=== PATIENT | male | born 1970 | race Hispanic/Latino ===

== ENCOUNTER 2020-10-09 22:29 | Emergency (ER) | payer OTHER ==
[2020-10-09] MEDS ORDERED: ONDANSETRON HCL 4 MG/2 ML VIAL ONE (23:02)
[2020-10-09 23:03] LABS: BASOPHILS % (AUTO) 0.2 % (0.0-5.0); EOSINOPHILS % (AUTO) 0.7 % (0.0-8.0); HEMATOCRIT 44.6 % (42-54); MEAN CORPUSCULAR HEMOGLOBIN 33.6 pg (27.0-33.0); MEAN CORPUSCULAR HGB CONC 35.9 g/dL (32.0-36.0); MEAN CORPUSCULAR VOLUME 93.7 fL (79-99); MONOCYTES % (AUTO) 9.6 % (3.0-13.0); NEUTROPHILS % (AUTO) 72.1 % (40.0-77.0); PLATELET COUNT (AUTO) 202 K/uL (130-400); RED BLOOD CELL COUNT(AUTO) 4.76 MIL/uL (4.50-6.20); RED CELL DISTRIBUTION WIDTH 11.9 % (11.0-15.5); WHITE BLOOD COUNT (AUTO) 12.1 K/uL (4.8-10.8)
[2020-10-09] MEDS ORDERED: MORPHINE SULFATE 4 MG/1ML SYG ONE (23:03)
[2020-10-09] MEDS ORDERED: CLINDAMYCIN 600 MG/D5% WATER 50 ML IV ONE (23:03)
[2020-10-09] MEDS ORDERED: ZOSYN 3.375GM+NS 50ML 50 ML IV ONE (23:03)
[2020-10-09 23:11] LABS: CREATININE 1.1 mg/dL (0.5-1.5); POTASSIUM 3.9 mmol/L (3.5-5.1)
[2020-10-09 23:17] LABS: BILIRUBIN,TOTAL 0.4 mg/dL (0.2-1.0); CRP QUANTITATIVE 61.8 mg/L (0.00-9.0); TOTAL PROTEIN, SERUM 7.6 g/dL (6.0-8.3)
== END 2020-10-10 00:14 | disposition home or self-care (01) ==
LOC: EDH 22:29
DX: L03.116 Cellulitis of left lower limb (principal)
CPT/HCPCS: 36415; 73630; 80053; 82948; 83605; 85025; 86140; 87040; 87070; 87076; 87077; 87186; 96365; 96368; 96375; 99284; J2270; J2405; J2543; J3490

== ENCOUNTER 2020-10-12 16:32 | Inpatient (IN) | payer SELFPAY ==
[~2020-10-12] VITALS: Ht 167.6 cm; Wt 92.2 kg
[2020-10-12 17:29] LABS: BASOPHILS % (AUTO) 0.4 % (0.0-5.0); HEMATOCRIT 44.3 % (42-54); LYMPHOCYTES % (AUTO) 27.7 % (21.0-51.0); MEAN CORPUSCULAR HEMOGLOBIN 32.8 pg (27.0-33.0); MEAN CORPUSCULAR HGB CONC 35.4 g/dL (32.0-36.0); MEAN CORPUSCULAR VOLUME 92.7 fL (79-99); MONOCYTES % (AUTO) 11.8 % (3.0-13.0); NEUTROPHILS % (AUTO) 57.5 % (40.0-77.0); PLATELET COUNT (AUTO) 260 K/uL (130-400); RED BLOOD CELL COUNT(AUTO) 4.78 MIL/uL (4.50-6.20); RED CELL DISTRIBUTION WIDTH 11.7 % (11.0-15.5); WHITE BLOOD COUNT (AUTO) 6.9 K/uL (4.8-10.8)
[2020-10-12 17:41] LABS: POTASSIUM 4.2 mmol/L (3.5-5.1)
[2020-10-12 17:46] LABS: ALBUMIN 3.4 g/dL (3.5-5.0); BILIRUBIN,TOTAL 0.6 mg/dL (0.2-1.0); TOTAL PROTEIN, SERUM 8.1 g/dL (6.0-8.3)
[2020-10-12] MEDS ORDERED: ZOSYN 3.375GM+NS 50ML 50 ML IV ONE (18:09)
[2020-10-12] MEDS ORDERED: VANCOMYCIN 1GM+NS 250ML 250 ML IV ONE (18:10)
[2020-10-12] MEDS ORDERED: ONDANSETRON HCL 4 MG/2 ML VIAL ONE (18:33)
[2020-10-12] MEDS ORDERED: MORPHINE SULFATE 4 MG/1ML SYG ONE (18:34)
[2020-10-12] MEDS: VANCOMYCIN 750MG + NS 250 ML IV SCH ×2 (21:00)
[2020-10-12] MEDS ORDERED: VANCOMYCIN PROTOCOL PER PHARMACY IV SCH (21:15)
[2020-10-12] MEDS ORDERED: MAG HYDROX/AL HYDROX/SIMETH ES 30 ML SUSP UDCUP PO PRN (21:15)
[2020-10-12] MEDS ORDERED: DiphenhydrAMINE HCL 50 MG/ML VIAL IV PRN (21:15)
[2020-10-12] MEDS ORDERED: ACETAMINOPHEN 325 MG TAB PO PRN ×2 (21:15)
[2020-10-12] MEDS ORDERED: DIPHENHYDRAMINE HCL 25 MG CAPSULE PO PRN (21:15)
[2020-10-12] MEDS ORDERED: LACTULOSE 20 GM/30 ML UDCUP PO PRN (21:15)
[2020-10-12] MEDS ORDERED: ONDANSETRON HCL 4 MG/2 ML VIAL IV PRN (21:15)
[2020-10-12] MEDS ORDERED: GUAIFENESIN-DM 200/20 MG 10 ML PO PRN (21:15)
[2020-10-12] MEDS ORDERED: NITROGLYCERIN 0.4 MG SL TAB SL PRN (21:15)
[2020-10-12 22:45] VITALS: BP 150/86
[2020-10-12 23:58] VITALS: BP 150/86
[2020-10-13] VITALS (23 sets, daily range): BP systolic 100–128; BP diastolic 59–88
[2020-10-13] MEDS: VANCOMYCIN 750MG + NS 250 ML IV SCH ×6 (02:20→21:17)
[2020-10-13] MEDS: ZOSYN 3.375GM+NS 50ML 50 ML IV SCH ×3 (04:22→17:17)
[2020-10-13 05:53] LABS: BASOPHILS % (AUTO) 0.6 % (0.0-5.0); EOSINOPHILS % (AUTO) 3.5 % (0.0-8.0); HEMATOCRIT 41.4 % (42-54); LYMPHOCYTES % (AUTO) 35.3 % (21.0-51.0); MEAN CORPUSCULAR HEMOGLOBIN 32.7 pg (27.0-33.0); MEAN CORPUSCULAR HGB CONC 35.3 g/dL (32.0-36.0); MEAN CORPUSCULAR VOLUME 92.8 fL (79-99); MONOCYTES % (AUTO) 15.3 % (3.0-13.0); NEUTROPHILS % (AUTO) 44.7 % (40.0-77.0); PLATELET COUNT (AUTO) 237 K/uL (130-400); RED BLOOD CELL COUNT(AUTO) 4.46 MIL/uL (4.50-6.20); RED CELL DISTRIBUTION WIDTH 11.7 % (11.0-15.5); WHITE BLOOD COUNT (AUTO) 5.1 K/uL (4.8-10.8)
[2020-10-13 06:36] LABS: ALBUMIN 2.9 g/dL (3.5-5.0); BILIRUBIN,TOTAL 0.4 mg/dL (0.2-1.0); CRP QUANTITATIVE 69.6 mg/L (0.00-9.0); POTASSIUM 3.5 mmol/L (3.5-5.1); TOTAL PROTEIN, SERUM 7.1 g/dL (6.0-8.3)
[2020-10-13] MEDS: ENOXAPARIN SODIUM 40 MG/0.4 ML SYRINGE SQ SCH (10:09)
[2020-10-13] MEDS ORDERED: GADODIAMIDE 10 MMOL/20 ML VIAL IV ONE (10:15)
[2020-10-13] MEDS ORDERED: COMPOUND IV REFRIGERATED 1 EACH IVSOLN MISC PRN (12:30)
[2020-10-13] MEDS ORDERED: MIDAZOLAM HCL 1 MG/ML 2ML VIAL ONE ×2 (13:53→14:22)
[2020-10-13] MEDS ORDERED: PROPOFOL 10 MG/ML 20ML VIAL IV ONE (13:54)
[2020-10-13] MEDS ORDERED: FENTANYL CITRATE PF 50 MCG/1 ML 2ML VIAL ONE ×2 (13:54→14:09)
[2020-10-13] MEDS ORDERED: BUPIVACAINE/PF 0.5% 30ML VIAL ONE (13:59)
[2020-10-13] MEDS ORDERED: LIDOCAINE HCL 1% 20 ML VIAL ONE (13:59)
[2020-10-13] MEDS ORDERED: MORPHINE SULFATE 2 MG/ML 1ML SYG IVP PRN (16:30)
[2020-10-13] MEDS ORDERED: HYDROMORPHONE HCL 0.5 MG/0.5 ML ML IVP PRN (16:30)
[2020-10-13] MEDS: FAMOTIDINE 20MG TAB 20 MG TAB PO SCH (20:26)
[2020-10-13] MEDS: TRAMADOL HCL 50 MG TABLET PO PRN (20:27)
[2020-10-14] VITALS (7 sets, daily range): BP systolic 112–131; BP diastolic 65–85
[2020-10-14] MEDS ORDERED: VANCOMYCIN IV SCH ×2
[2020-10-14] MEDS ORDERED: SODIUM CHLORIDE 0.9% IV SCH ×2
[2020-10-14] MEDS ORDERED: VANCOMYCIN 1GM+NS 250ML 250 ML IV SCH
[2020-10-14] MEDS: ZOSYN 3.375GM+NS 50ML 50 ML IV SCH ×3 (02:09→19:53)
[2020-10-14] MEDS: TRAMADOL HCL 50 MG TABLET PO PRN ×2 (05:34→15:44)
[2020-10-14 05:58] LABS: BASOPHILS % (AUTO) 0.5 % (0.0-5.0); EOSINOPHILS % (AUTO) 2.7 % (0.0-8.0); HEMATOCRIT 39.6 % (42-54); LYMPHOCYTES % (AUTO) 30.7 % (21.0-51.0); MEAN CORPUSCULAR HEMOGLOBIN 32.6 pg (27.0-33.0); MEAN CORPUSCULAR HGB CONC 35.4 g/dL (32.0-36.0); MEAN CORPUSCULAR VOLUME 92.1 fL (79-99); MONOCYTES % (AUTO) 11.1 % (3.0-13.0); NEUTROPHILS % (AUTO) 54.4 % (40.0-77.0); PLATELET COUNT (AUTO) 249 K/uL (130-400); RED CELL DISTRIBUTION WIDTH 11.6 % (11.0-15.5); WHITE BLOOD COUNT (AUTO) 6.6 K/uL (4.8-10.8)
[2020-10-14 06:07] LABS: BILIRUBIN,TOTAL 0.6 mg/dL (0.2-1.0); POTASSIUM 4.3 mmol/L (3.5-5.1); TOTAL PROTEIN, SERUM 7.1 g/dL (6.0-8.3)
[2020-10-14] MEDS ORDERED: VANCOMYCIN 1.5 GM in SODIUM CHLORIDE 0.9% 250 ML IV SCH (07:30)
[2020-10-14] MEDS: ENOXAPARIN SODIUM 40 MG/0.4 ML SYRINGE SQ SCH (08:38)
[2020-10-14] MEDS: FAMOTIDINE 20MG TAB 20 MG TAB PO SCH ×2 (08:39→19:53)
[2020-10-14] MEDS: VANCOMYCIN 1GM+NS 250ML 250 ML IV SCH ×2 (15:34→19:53)
[2020-10-15] MEDS: ZOSYN 3.375GM+NS 50ML 50 ML IV SCH ×2 (02:55→09:32)
[2020-10-15 03:42] VITALS: BP 128/80
[2020-10-15 05:12] LABS: BASOPHILS % (AUTO) 0.7 % (0.0-5.0); EOSINOPHILS % (AUTO) 3.5 % (0.0-8.0); HEMATOCRIT 42.6 % (42-54); LYMPHOCYTES % (AUTO) 31.1 % (21.0-51.0); MEAN CORPUSCULAR HEMOGLOBIN 31.9 pg (27.0-33.0); MEAN CORPUSCULAR HGB CONC 34.5 g/dL (32.0-36.0); MEAN CORPUSCULAR VOLUME 92.4 fL (79-99); MONOCYTES % (AUTO) 14.3 % (3.0-13.0); NEUTROPHILS % (AUTO) 49.2 % (40.0-77.0); PLATELET COUNT (AUTO) 279 K/uL (130-400); RED BLOOD CELL COUNT(AUTO) 4.61 MIL/uL (4.50-6.20); RED CELL DISTRIBUTION WIDTH 11.6 % (11.0-15.5); WHITE BLOOD COUNT (AUTO) 5.7 K/uL (4.8-10.8)
[2020-10-15 05:50] LABS: ALBUMIN 3.1 g/dL (3.5-5.0); BILIRUBIN,TOTAL 0.3 mg/dL (0.2-1.0); CREATININE 1.1 mg/dL (0.5-1.5); POTASSIUM 3.8 mmol/L (3.5-5.1); TOTAL PROTEIN, SERUM 7.4 g/dL (6.0-8.3)
[2020-10-15 08:05] VITALS: BP 132/84
[2020-10-15] MEDS ORDERED: VANCOMYCIN 1.25 GM in SODIUM CHLORIDE 0.9% 250 ML IV SCH ×2 (09:00→21:00)
[2020-10-15] MEDS: ENOXAPARIN SODIUM 40 MG/0.4 ML SYRINGE SQ SCH (09:32)
[2020-10-15] MEDS: FAMOTIDINE 20MG TAB 20 MG TAB PO SCH (09:32)
[2020-10-15] MEDS ORDERED: VANCOMYCIN 1.5 GM in SODIUM CHLORIDE 0.9% 250 ML IV SCH (10:00)
[2020-10-15] MEDS ORDERED: VANCOMYCIN 1.75 GM in SODIUM CHLORIDE 0.9% 250 ML IV SCH (10:15)
[2020-10-15 11:04] VITALS: BP 136/82
[2020-10-15] MEDS ORDERED: CEFUROXIME AXETIL 250 MG TABLET PO SCH (13:00)
[2020-10-15] MEDS ORDERED: SILVER SULFADIAZINE CREAM 400 GM TP SCH (13:04)
[2020-10-15 16:14] VITALS: BP 141/73
[2020-10-15] MEDS ORDERED: Cefuroxime Axetil PO (16:47)
[2020-10-15] MEDS ORDERED: SILV25CR23 TP (16:47)
== END 2020-10-15 17:25 | disposition home or self-care (01) | DRG 579 ==
LOC: EDH 16:32 → EDHIP 16:33 → 3CH 22:06
PROVIDERS: ADMIT Family Medicine; ATTEND Family Medicine
PROC: 0KBV0ZZ Excision of Right Foot Muscle, Open Approach (ICD-10-PCS; principal; 2020-10-12)
DX: L03.115 Cellulitis of right lower limb (principal); M72.6 Necrotizing fasciitis; L02.611 Cutaneous abscess of right foot; T63.301A Toxic effect of unspecified spider venom, accidental (unintentional), initial encounter; L97.519 Non-pressure chronic ulcer of other part of right foot with unspecified severity; B95.61 Methicillin susceptible Staphylococcus aureus infection as the cause of diseases classified elsewhere; E11.621 Type 2 diabetes mellitus with foot ulcer; E66.9 Obesity, unspecified; Z68.32 Body mass index [BMI] 32.0-32.9, adult; Y92.89 Other specified places as the place of occurrence of the external cause
CPT/HCPCS: 36415; 73630; 73718; 80053; 80202; 83605; 85025; 86140; 87040; 87070; 87076; 87077; 87186; 87205; A9579; G0378; J1650; J2250; J2270; J2405; J2543; J2704; J3010; J3370; J3490; J7050; J7120; Q0163